=== PATIENT | female | born 1955 | race African-American/Black ===

== ENCOUNTER 2018-03-17 10:49 | Inpatient (IN) | payer MEDICARE, MEDICAID ==
--- NOTE | 2018-03-17 11:14 | CT ---
CT BRAIN WITHOUT CONTRAST: HISTORY: Stroke. Right-sided weakness. Nonverbal. COMPARISON: CT brain 2012. FINDINGS: There is an old right SLIP SEAT COVERER infarction with encephalomalacia. Extensive periventricular and deep white matter microangiopathic changes. Old lacunar infarcts. Moderate atrophy. Mild ex vacuo dilatation of the ventricular system. There is fluid filling the left mastoid sinuses. No hemorrhage. No midline shift or mass effect. IMPRESSION: Chronic changes. No acute hemorrhage. No definite acute intracranial infarction is appreciated. Dr. Hernandez at 11:00 a.m. CODE CR POS: [facility]
[2018-03-17 11:19] LABS: Hemoglobin 12.1 g/dL (12.0-16.0); Mean Corpuscular HGB CONC 35.2 g/dL (32.0-36.0); Mean Corpuscular Hemoglobin 28.8 pg (27.0-31.0); Mean Corpuscular Volume 81.9 fl (81.0-99.0); Mean Platelet Volume 10.3 fL (7.4-10.4); Platelet Count 164 thou/uL (130-400); RBC Distribution Width 14.3 % (11.5-14.5); Red Blood Cell (RBC) Count 4.19 mill/uL (4.20-5.40); White Blood Cell (WBC) Count 11.5 thou/uL (4.8-10.8)
[2018-03-17 11:28] LABS: INR-International Normal Ratio 1.1; PTT 35.3 SEC (22.9-36.1); Prothrombin Time 14.4 SEC (12.0-14.7)
[2018-03-17 11:39] LABS: ALT (SGPT) 20 U/L (8-55); AST (SGOT) 19 U/L (5-34); Albumin 3.4 g/dL (3.4-4.8); Alkaline Phosphatase 88 U/L (40-150); Anion Gap 15 mmol/L (10-20); BUN (Urea Nitrogen) 58 mg/dL (9.8-20.1); Bilirubin, Total 0.4 mg/dL (0.2-1.2); CK (CPK) 54 U/L (29-168); Calc. Creatinine Clearance 0 mL/min (70-130); Calcium 11.4 mg/dL (7.8-10.44); Carbon Dioxide 25 mmol/L (23-31); Chloride 103 mmol/L (98-107); Estimated GFR-MDRD 24; Globulin 4.1 g/dL (2.4-3.5); Glucose 129 mg/dL (80-115); Lipase 102 U/L (8-78); Potassium 3.3 mmol/L (3.5-5.1); Protein, Total 7.5 g/dL (6.0-8.3); Sodium 140 mmol/L (136-145)
--- NOTE | 2018-03-17 11:39 | RAD ---
CHEST ONE VIEW: History: Altered mental status. Comparison: 01-15-13 FINDINGS: The lungs are hypoinflated. No pneumothorax. There is vascular crowding. Dense calcifications in the transverse aorta. There appear to be calcified mediastinal lymph nodes. IMPRESSION: Cardiomegaly with lung hypoinflation and vascular crowding. POS: [facility]
[2018-03-17 11:47] LABS: CKMB 1.6 ng/mL (0-6.6); Troponin I 0.052 ng/mL (< 0.028)
[2018-03-17 11:51] LABS: Band 3 % (5-11); Lymphocytes 1 % (21-51); MDiff Complete? YES; Monocytes 1 % (0-10); Neutrophil 95 % (42-75); PLT Morphology Comment Appears Adequate
--- NOTE | 2018-03-17 15:04 | PDOC.FPRHP ---
- History of Present Illness Chief Complaint: R arm weakness History of Present Illness: 62 y/o Female NH resident PMHx CVA in 2010 w/ residual L sided deficits and dysarthria, HTN, DMII who presents from the NH due to decreased use of her R arm and decreased speech. The patient is AOx1 at baseline. She doesn't speak very much and is dysarthric, but the NH was concerned that when they went to check on her she was less responsive and her eyes rolled back and she was not lifting her R arm as much as she used to. She is not complaining of any pain, but she will only answer some questions and follow some commands. ED Course: The patient was evaluated in the ED by Dr. Bui and was given Aspirin 324mg - Allergies/Adverse Reactions Allergies Allergy/AdvReac Type Severity Reaction Status Date / Time ibuprofen Allergy Verified 03/17/18 16:27 Penicillins Allergy Verified 03/17/18 16:27 - Home Medications Medication Instructions Recorded Confirmed Type Acetaminophen [Tylenol] 6.25 ml PER TUBE Q6HR PRN MDD 3 03/17/18 03/17/18 History grams Amino Acids/Protein Hydrolys 30 ml PER TUBE DAILY 03/17/18 03/17/18 History [Pro-Stat Awc Liquid] Artificial Tear Ointment 1 applic EA EYE ASDIR PRN 03/17/18 03/17/18 History [Lacri-Lube Ointment] Aspirin [Aspirin Chewable] 81 mg PER TUBE DAILY 03/17/18 03/17/18 History Atorvastatin Calcium 80 mg PER TUBE DAILY 03/17/18 03/17/18 History Cholecalciferol (Vitamin D3) 5,000 unit PER TUBE DAILY 03/17/18 03/17/18 History [Vitamin D3] Glimepiride 2 mg PER TUBE BID 03/17/18 03/17/18 History Insulin Glargine,Hum.Rec.Anlog 15 unit SC BID 03/17/18 03/17/18 History [Lantus] Lisinopril [Zestril] 5 mg PER TUBE DAILY 03/17/18 03/17/18 History Loratadine 10 mg PER TUBE DAILY 03/17/18 03/17/18 History Metoprolol Tartrate 12.5 mg PER TUBE BID 03/17/18 03/17/18 History Multivitamin [Multiple Vitamins] 1 each PER TUBE DAILY 03/17/18 03/17/18 History Ondansetron [Zofran Oral Solution] 4 mg PER TUBE Q8HR PRN 03/17/18 03/17/18 History Polyethylene Glycol 3350 [Miralax] 17 gm PER TUBE DAILY 03/17/18 03/17/18 History Sertraline HCl [Zoloft] 50 mg PER TUBE DAILY 03/17/18 03/17/18 History Zantac [Zantac] 75 mg PER TUBE DAILY 03/17/18 03/17/18 History hydrALAZINE [Apresoline] 25 mg PER TUBE QID PRN 03/17/18 03/17/18 History traMADol HCl [Tramadol HCl] 50 mg PER TUBE TID PRN 03/17/18 03/17/18 History - History PMHx: 1. Osteoporosis 2. HTN 3. HLD 4. CAD 5. DM2 6. Migraines 7. Vit D Deficiency 8. Depression 9. 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 Denies EtOH or drug use. - Review of Systems ROS unobtainable: other (Patient is dysarthric) - Vital signs BP: 184/108 HR: 99 RR: 20 Tmax: 99.6 Pox: 100% on RA Wt: 80.3 kg - Physical Exam Constitutional: NAD HEENT: PERRLA, EOMI, conjunctiva clear, grossly normal hearing, normal nasal mucosa, MMM Neck: supple, trachea midline, no JVD Heart: RRR, no murmurs/rubs/gallops, pulses present, no edema Lungs: CTAB, no respiratory distress, good air movement, no rales/rhonchi, no wheezing, no retractions Abdomen: soft, non-tender, bowel sounds present, no masses/distention -Musculoskeletal: L arm held in flexed position, BLE extended, decreased tone in LUE and BLE -Neurological: 0/5 movement on LUE and LLE, 1/5 movement on RLE, 4/5 movement on RUE. Patient only followed some commands so difficult to assess CN and sensation, AOx1 Skin: good turgor, capillary refill <2 seconds FMR H&P: Results - Labs Result Diagrams: 03/17/18 11:10 03/17/18 11:10 Lab results: WBC 11.5 thou/uL (4.8-10.8) H 03/17/18 11:10 Hgb 12.1 g/dL (12.0-16.0) 03/17/18 11:10 Hct 34.3 % (36.0-47.0) L 03/17/18 11:10 MCV 81.9 fl (81.0-99.0) 03/17/18 11:10 Plt Count 164 thou/uL (130-400) 03/17/18 11:10 Band Neuts % (Manual) 3 % (5-11) L 03/17/18 11:10 Sodium 140 mmol/L (136-145) 03/17/18 11:10 Potassium 3.3 mmol/L (3.5-5.1) L 03/17/18 11:10 Chloride 103 mmol/L (98-107) 03/17/18 11:10 Carbon Dioxide 25 mmol/L (23-31) 03/17/18 11:10 BUN 58 mg/dL (9.8-20.1) H 03/17/18 11:10 Creatinine 2.48 mg/dL (0.6-1.1) H 03/17/18 11:10 Glucose 129 mg/dL (80-115) H 03/17/18 11:10 Calcium 11.4 mg/dL (7.8-10.44) H 03/17/18 11:10 Total Bilirubin 0.4 mg/dL (0.2-1.2) 03/17/18 11:10 AST 19 U/L (5-34) 03/17/18 11:10 ALT 20 U/L (8-55) 03/17/18 11:10 Alkaline Phosphatase 88 U/L (40-150) 03/17/18 11:10 Creatine Kinase 54 U/L (29-168) 03/17/18 11:10 CK-MB (CK-2) 1.6 ng/mL (0-6.6) 03/17/18 11:10 Serum Total Protein 7.5 g/dL (6.0-8.3) 03/17/18 11:10 Albumin 3.4 g/dL (3.4-4.8) 03/17/18 11:10 Lipase 102 U/L (8-78) H 03/17/18 11:10 - EKG Interpretation EKst degree AV block, LVH. - Radiology Interpretation CT scan - head Status: image reviewed by me, report reviewed by me Additional comment: No acute hemorrhage or intracranial infarction. Chronic changes seen. Chest x-ray Status: image reviewed by me, report reviewed by me Additional comment: Cardiomegaly. Lung hypoinflation and vascular crowding. FMR H&P: A/P - Problem List (1) TIA (transient ischemic attack) Current Visit: Yes Status: Acute Qualifiers: Transient cerebral ischemia type: unspecified Qualified Code(s): G45.9 - Transient cerebral ischemic attack, unspecified (2) PB (acute kidney injury) Current Visit: Yes Status: Acute Code(s): N17.9 - ACUTE KIDNEY FAILURE, UNSPECIFIED (3) Elevated troponin Current Visit: Yes Status: Acute Code(s): R74.8 - ABNORMAL LEVELS OF OTHER SERUM ENZYMES (4) H/O: CVA (cerebrovascular accident) Current Visit: Yes Status: Acute Code(s): Z86.73 - PRSNL HX OF TIA (TIA), AND CEREB INFRC W/O RESID DEFICITS (5) Hemiplegia Current Visit: Yes Status: Acute Code(s): G81.90 - HEMIPLEGIA, UNSPECIFIED AFFECTING UNSPECIFIED SIDE Qualifiers: Hemiplegia type: spastic Hemiplegia etiology: late effect of cerebrovascular disease Cerebrovascular disease type: cerebral infarction Hemiplegia laterality: left nondominant side Qualified Code(s): I69.354 - Hemiplegia and hemiparesis following cerebral infarction affecting left non- dominant side (6) Hypercalcemia Current Visit: Yes Status: Acute Code(s): E83.52 - HYPERCALCEMIA (7) Hypermagnesemia Current Visit: Yes Status: Acute Code(s): E83.41 - HYPERMAGNESEMIA (8) Hypokalemia Current Visit: Yes Status: Acute Code(s): E87.6 - HYPOKALEMIA (9) Elevated lipase Current Visit: Yes Status: Acute Code(s): R74.8 - ABNORMAL LEVELS OF OTHER SERUM ENZYMES (10) Dysarthria Current Visit: Yes Status: Acute Code(s): R47.1 - DYSARTHRIA AND ANARTHRIA (11) HTN (hypertension) Current Visit: Yes Status: Acute Code(s): I10 - ESSENTIAL (PRIMARY) HYPERTENSION Qualifiers: Hypertension type: essential hypertension Qualified Code(s): I10 - Essential (primary) hypertension (12) HLD (hyperlipidemia) Current Visit: Yes Status: Acute Code(s): E78.5 - HYPERLIPIDEMIA, UNSPECIFIED Qualifiers: Hyperlipidemia type: unspecified Qualified Code(s): E78.5 - Hyperlipidemia , unspecified (13) CAD (coronary artery disease) Current Visit: Yes Status: Acute Code(s): I25.10 - ATHSCL HEART DISEASE OF [place] CORONARY ARTERY W/O ANG PCTRS Qualifiers: Coronary Disease-Associated Artery/Lesion type: [place] artery [place] vs. transplanted heart: [place] heart Associated angina: angina presence unspecified Qualified Code(s): I25.10 - Atherosclerotic heart disease of [place] coronary artery without angina pectoris (14) DM2 (diabetes mellitus, type 2) Current Visit: Yes Status: Acute Qualifiers: Diabetes mellitus shelter insulin use: with shelter use Diabetes mellitus complication status: without complication Qualified Code(s): E11.9 - Type 2 diabetes mellitus without complications; Z79.4 - terminal block assembler (current) use of insulin; Z79.4 - custodial (current) use of insulin; Z79.4 - terminal block assembler ( current) use of insulin; Z79.4 - custodial (current) use of insulin - Plan TIA vs CVA vs Delirium Patient had decreased responsiveness and decreased movement of R arm per [place] report this AM. Upon our evaluation the patient appears to be at her baseline. I spoke to [facility] who stated that she doesn't use that arm very much and is pretty weak in that arm. The MPOA stated that she wanted everything done to evaluate her though including an MRI, even if nothing would be done based on the results. CT showed no hemorrhage or acute infarct. -MRI -Continue aspirin -Continue statin -Neuro checks PB vs CKD Patient has h/o ATN requiring dialysis in 2012. Since then she has been off of dialysis. Her most recent Cr at the [place] was 2.0 with a GFR of 31. The Cr here is 2.48 with GFR of 24. The nurses tried to straight cath her and couldn't get any urine out in the ED. -Check urine Cr and urine Na to measure FeNa -NS @ 150 -Renally dose medications and avoid nephrotoxic meds -Monitor creatinine Indeterminate Troponin Trop was 0.052. The patient shook her head no when asked if any chest pain. -Trend trops -Repeat EKG for any chest pain -Monitor on tele 1st degree AV block Seen on EKG -Monitor on tele CVA with residual L sided hemiplegia and dysarthria Patient appears at her baseline -Stroke workup as above CAD -Continue home aspirin -Trend trop DMII -Levemir 15 U BID (pt on lantus 15 U BID at home) -Mild SSI -Accuchecks ACHS HTN -Continue metoprolol and lisinopril HLD -Continue statin VTE ppx: Heparin Code Status: DNR Disposition/LOS: Obs on tele, length of stay likely less than 48 hours FMR H&P: Upper Level - Pertinent history Patient with chronic severe dementia and weakness and contractures of bilateral legs and L hand presents with not speaking and not using R hand this monring. She spontaneously improved when arriving to the ED but she is still minimally oriented and only intermittetedly verbal. - Pertinent findings Gen: obese female in no acute distress, Does not turn or react when I walk into room. Reacts to very loud talking. HEENT: NC/AT, GIO,EOMI, MMM Resp: CTA, normal work of breathing CV: RRR, normal S1, S2, no murmur ABD: Soft nontender, nondistended. Extremities: significant leg wasting and contractures. Left arm contractures. Psych: Patient is following commands, but is otherwise blank Neuro: R arm 4-/5. Intermittetnly non verbal. - Plan Date/Time: 03/17/18 1503 Kenneth Galicia, have evaluated this patient and agree with findings/plan as outlined by recruitment internship resident. Pertinent changes/additions are listed here. 1. TIA vs delirium- Patient's baseline is not signficantly orientd and has some weakness in R arm at baseline. Patient is high risk for TIA but she may have had acute delirium and was not following commands with using that arm. Per family wishes, will evaluate with MRI and neuro checks. 2. PB on CKD- will monitor CR with gentle fluids. -Monitor creatinine 3. indeterminate troponins- likely 2/2 to renal disease but will trend 4. DM- Will give levemir 15 units BID with SSI 5. HTN- Patient will be 24 hours out from event before next dose of home medications, so we will allow full permissive HTN and then restart. Will monitor closely during this time. She missed her morning medications this AM. 6. HLD- continue statin Attending Addendum - Attending Addendum Date/Time: 03/17/182117 I personally evaluated the patient and discussed the management with Dr. Flores and Dr. Galicia I agree with the History, Examination, Assessment and Plan documented above with any addition or exceptions noted below. 62 yo female with multiple medical conditions present for evaluation of right sided weakness. At present patient appears to be at baseline. No NH staff present. No family present. Spoke with NH staff. Reports decrease use of right arm today will less speech than usual. Otherwise at baseline. VS reviewed. Labs reviewed. Images reviewed. Patient responds to questioning and commands. Oriented to person and place. 1. TIA vs baseline: CT negative. Continue ASA and statin. Family would like to proceed with MRI. Continue neuro checks. Family to evaluate in AM. 2. hx of CVA: Stable focal deficits. Adjust home meds as needed. Vimal
[2018-03-17] MEDS ORDERED: HumaLOG 300 UNITS/3 ML VIAL SC PRN (16:29)
[2018-03-17] MEDS ORDERED: Dextrose 5% in Water 1,000 ML IV PRN (16:29)
[2018-03-17] MEDS ORDERED: Dextrose 50% Abboject 50 ML SYRINGE SLOW IVP PRN (16:29)
[2018-03-17] MEDS ORDERED: hydrALAZINE 20 MG/ML VIAL SLOW IVP PRN ×2 (16:32→17:13)
[2018-03-17] MEDS: Sodium Chloride 0.9% 1,000 ML IV SCH ×2 (17:40→23:40)
[2018-03-17] MEDS: Atorvastatin Calcium 40 MG TAB PER TUBE SCH ×2 (20:06→23:39)
[2018-03-17] MEDS: Insulin Detemir 100 UNITS/ML 15 UNITS SC SCH (20:09)
[2018-03-17] MEDS: Heparin 5,000 UNITS/ML VIAL SC SCH (20:10)
[2018-03-17] MEDS ORDERED: Metoprolol Tartrate 25 MG TAB PER TUBE SCH (21:00)
[2018-03-18] MEDS: Sodium Chloride 0.9% 1,000 ML IV SCH ×4 (05:29→21:56)
[2018-03-18 05:55] LABS: Anion Gap 15 mmol/L (10-20); BUN (Urea Nitrogen) 53 mg/dL (9.8-20.1); Calc. Creatinine Clearance 33 mL/min (70-130); Carbon Dioxide 22 mmol/L (23-31); Cardiac Risk 3.8 (Less than 4.5); Chloride 108 mmol/L (98-107); Cholesterol 172 mg/dl (< 200 Desired); Estimated GFR-MDRD 28; Glucose 139 mg/dL (80-115); HDL Cholesterol 45 mg/dL (>60 Neg Risk); LDL Cholesterol, Calculated 107 mg/dL; Sodium 142 mmol/L (136-145); Triglycerides 98 mg/dL (Less than 150)
[2018-03-18 06:05] LABS: Band 17 % (5-11); Eosinophils 1 % (0-10); Lymphocytes 5 % (21-51); MDiff Complete? YES; Mean Corpuscular HGB CONC 34.5 g/dL (32.0-36.0); Mean Corpuscular Hemoglobin 28.3 pg (27.0-31.0); Mean Platelet Volume 10.1 fL (7.4-10.4); Monocytes 3 % (0-10); Neutrophil 74 % (42-75); PLT Morphology Comment Appears Adequate; Platelet Count 166 thou/uL (130-400); RBC Distribution Width 14.4 % (11.5-14.5); Red Blood Cell (RBC) Count 3.88 mill/uL (4.20-5.40); White Blood Cell (WBC) Count 12.3 thou/uL (4.8-10.8)
[2018-03-18] MEDS ORDERED: hydrALAZINE 20 MG/ML VIAL SLOW IVP PRN (06:43)
[2018-03-18 07:14] LABS: Magnesium 2.6 mg/dL (1.6-2.6); Phosphorus 2.4 mg/dL (2.3-4.7)
--- NOTE | 2018-03-18 08:19 | PDOC.FM ---
- Subjective Subjective: Patient reports some abdominal pain this AM. She pointed to the middle of her abdomen as the place where it hurt the worst. She otherwise doesn't complain of anything specifically. When asked if she had any nausea or vomiting she didn't answer me. She was AOx1. - Objective MAR Reviewed: Yes Vital Signs & Weight: Vital Signs (12 hours) Temp Pulse Resp BP Pulse Ox 03/18/18 07:32 98.7 F 101 H 18 142/96 H 96 03/18/18 04:20 98.4 F 94 20 177/99 H 95 03/17/18 23:48 98.4 F 104 H 20 147/89 H 97 03/17/18 20:20 98.0 F 106 H 20 142/93 H 96 Weight Weight 75.16 kg I&O: 03/17/18 03/18/18 03/19/18 06:59 06:59 06:59 Intake Total 1877 Balance 1877 Result Diagrams: 03/18/18 05:15 03/18/18 05:15 <Laura Flores - Last Filed: 03/18/18 08:18> - Objective Vital Signs & Weight: Vital Signs (12 hours) Temp Pulse Resp BP BP Pulse Ox 03/18/18 12:00 99.3 F 87 22 H 163/86 H 95 03/18/18 10:38 101 H 142/96 H 03/18/18 08:05 98.7 F 101 H 18 03/18/18 07:32 98.7 F 101 H 18 142/96 H 96 03/18/18 04:20 98.4 F 94 20 177/99 H 95 Weight Weight 75.16 kg I&O: 03/17/18 03/18/18 03/19/18 06:59 06:59 06:59 Intake Total 1877 390 Balance 1877 390 Result Diagrams: 03/18/18 05:15 03/18/18 05:15 <Tramaine Shepard - Last Filed: 03/18/18 12:55> Phys Exam - Physical Examination Constitutional: NAD HEENT: moist MMs Respiratory: no wheezing, no rales, no rhonchi, clear to auscultation bilateral Cardiovascular: RRR, no significant murmur, no rub Gastrointestinal: soft, no distention, positive bowel sounds mildly tender to palpation diffusely, no rebound or guarding Musculoskeletal: no edema, pulses present decreased tone 0/5 strength in LUE/LLE. 1/5 strength in RLE. 4/5 strength in RUE. Psychiatric: normal affect Deviation from normal: A&Ox1 Skin: normal turgor, cap refill <2 seconds <Laura Flores - Last Filed: 03/18/18 08:18> Dx/Plan (1) TIA (transient ischemic attack) Status: Acute QualifierTitle: Transient cerebral ischemia type: unspecified Qualified Code(s): G45.9 - Transient cerebral ischemic attack, unspecified (2) PB (acute kidney injury) Code(s): N17.9 - ACUTE KIDNEY FAILURE, UNSPECIFIED Status: Acute (3) Elevated troponin Code(s): R74.8 - ABNORMAL LEVELS OF OTHER SERUM ENZYMES Status: Acute (4) H/O: CVA (cerebrovascular accident) Code(s): Z86.73 - PRSNL HX OF TIA (TIA), AND CEREB INFRC W/O RESID DEFICITS Status: Acute (5) Hemiplegia Code(s): G81.90 - HEMIPLEGIA, UNSPECIFIED AFFECTING UNSPECIFIED SIDE Status: Acute QualifierTitle: Hemiplegia type: spastic Hemiplegia etiology: late effect of cerebrovascular disease Cerebrovascular disease type: cerebral infarction Hemiplegia laterality: left nondominant side Qualified Code(s): I69.354 - Hemiplegia and hemiparesis following cerebral infarction affecting left non-dominant side (6) Hypercalcemia Code(s): E83.52 - HYPERCALCEMIA Status: Acute (7) Hypermagnesemia Code(s): E83.41 - HYPERMAGNESEMIA Status: Acute (8) Hypokalemia Code(s): E87.6 - HYPOKALEMIA Status: Acute (9) Elevated lipase Code(s): R74.8 - ABNORMAL LEVELS OF OTHER SERUM ENZYMES Status: Acute (10) Dysarthria Code(s): R47.1 - DYSARTHRIA AND ANARTHRIA Status: Acute (11) HTN (hypertension) Code(s): I10 - ESSENTIAL (PRIMARY) HYPERTENSION Status: Acute QualifierTitle: Hypertension type: essential hypertension Qualified Code( s): I10 - Essential (primary) hypertension (12) HLD (hyperlipidemia) Code(s): E78.5 - HYPERLIPIDEMIA, UNSPECIFIED Status: Acute QualifierTitle: Hyperlipidemia type: unspecified Qualified Code(s): E78.5 - Hyperlipidemia, unspecified (13) CAD (coronary artery disease) Code(s): I25.10 - ATHSCL HEART DISEASE OF [place] CORONARY ARTERY W/O ANG PCTRS Status: Acute QualifierTitle: Coronary Disease-Associated Artery/Lesion type: [place] artery [place] vs. transplanted heart: [place] heart Associated angina: angina presence unspecified Qualified Code(s): I25.10 - Atherosclerotic heart disease of [place] coronary artery without angina pectoris (14) DM2 (diabetes mellitus, type 2) Status: Acute QualifierTitle: Diabetes mellitus skilled nursing insulin use: with glue spreader use Diabetes mellitus complication status: without complication Qualified Code(s): E11.9 - Type 2 diabetes mellitus without complications; Z79.4 - corrosion control technician (current) use of insulin; Z79.4 - care home (current) use of insulin; Z79.4 - care home (current) use of insulin; Z79.4 - care home (current) use of insulin (15) Leukocytosis Code(s): D72.829 - ELEVATED WHITE BLOOD CELL COUNT, UNSPECIFIED Status: Acute QualifierTitle: Leukocytosis type: bandemia Qualified Code(s): D72.825 - Bandemia - Plan Plan: TIA vs CVA vs Delirium Patient had decreased responsiveness and decreased movement of R arm per [place] report this AM. Upon our evaluation the patient appears to be at her baseline. I spoke to MPOA who stated that she doesn't use that arm very much and is pretty weak in that arm. The MPOA stated that she wanted everything done to evaluate her though including an MRI, even if nothing would be done based on the results. CT showed no hemorrhage or acute infarct. This AM her WBC count has elevated with 17% bands. She has been afebrile, but tachycardic from 90s- 110s. She is reporting abdominal pain this AM that could be the source of infection. -MRI -Continue aspirin -Continue statin -Neuro checks -BCx -UCx, UA PB vs CKD Patient has h/o ATN requiring dialysis in 2012. Since then she has been off of dialysis. Her most recent Cr at the [place] was 2.0 with a GFR of 31. The Cr here is 2.48 with GFR of 24. The nurses tried to straight cath her and couldn't get any urine out in the ED. Her Cr has improved today to 2.14 -Check urine Cr and urine Na to measure FeNa -NS @ 150 -Renally dose medications and avoid nephrotoxic meds -Monitor creatinine Hypokalemia K was 3.0 this AM -Will replete -Monitor Indeterminate Troponin Trop was 0.052. The patient shook her head no when asked if any chest pain. This is likely 2/2 decreased clearance by the kidneys -Monitor on tele 1st degree AV block Seen on EKG -Monitor on tele CVA with residual L sided hemiplegia and dysarthria Patient appears at her baseline -Stroke workup as above CAD -Continue home aspirin DMII -Levemir 15 U BID (pt on lantus 15 U BID at home) -Mild SSI -Accuchecks ACHS HTN -Continue metoprolol and lisinopril HLD -Continue statin <Laura Flores - Last Filed: 03/18/18 08:18> Attending Addendum - Attending Addendum Date/Time: 03/18/18 5745 I personally evaluated the patient and discussed the management with Dr. Flores I agree with the History, Examination, Assessment and Plan documented above with any addition or exceptions noted below. Patient follow commands leucocytosis worrisome skin intact no breakdown/ decubitus noted on exam abdomen soft without guarding rebound. Consider Urine as source not able to obtain cath urine specimen due to prior CVA and contractures LE limiting access. Expectant management culture/treat prn. Exam notable poor oral hygiene and lower incisors mobile. care home need to discuss management goal with POA regard medical care, MRI scheduled r/o new CVA. Prior history of primary hyperparathyroidism will discuss further evaluation and treatment options. <Tramaine Shepard - Last Filed: 03/18/18 12:55>
[2018-03-18] MEDS ORDERED: Ondansetron ODT 8 MG TAB SL PRN (08:26)
[2018-03-18] MEDS: Lisinopril 5 MG TAB PER TUBE SCH (10:38)
[2018-03-18] MEDS: Metoprolol Tartrate 25 MG TAB PER TUBE SCH ×2 (10:39→21:55)
[2018-03-18] MEDS: Insulin Detemir 100 UNITS/ML 15 UNITS SC SCH ×2 (10:41→21:54)
[2018-03-18] MEDS: Aspirin 81 mg Enteric Coated Tablet PER TUBE SCH (10:42)
[2018-03-18] MEDS: Heparin 5,000 UNITS/ML VIAL SC SCH ×3 (10:42→21:55)
--- NOTE | 2018-03-18 16:06 | PDOC.EVN ---
Event Note - Event Note Event Note: Spoke to the MPOA, Daly Nuraurelianorodger, this afternoon and she stated that she no longer wanted the MRI since her sister was back acting like herself again and she is already on all the medications to treat a stroke. Informed her that the patient may have an infection that was causing her symptoms. We have collected a urine and are waiting on results. The sister understood this and did not have any further questions. <Laura Flores - Last Filed: 03/18/18 16:03> Attending Addendum - Attending Addendum Date/Time: 03/19/18 4864 I personally evaluated the patient and discussed the management with Dr. Flores I agree with the History, Examination, Assessment and Plan documented above with any addition or exceptions noted below.Patient given Rocephin following obtaining U/A c/w UTI. Patient WBC improved Patient back at baseline. Patient with established Primary hyperparathyroidism not a surgical candidate will defer any termite renewal inspector medical management to PCP. D/C today with quinolone antibiotic today will f/u outpatient Urine C&S. Patient DNR staus Family counseled regard care plan. <Tramaine Shepard - Last Filed: 03/19/18 11:13>
[2018-03-18 16:56] LABS: Creatinine, Urine 62.43 mg/dL (47-110)
[2018-03-18] MEDS: HumaLOG 300 UNITS/3 ML VIAL SC PRN (17:29)
[2018-03-18 19:19] LABS: Bilirubin Negative (Negative); Blood, Urine Large (Negative); Clarity CLOUDY (Clear); Glucose, Urine (Dipstick) 100 mg/dL (Negative); Leukocyte Negative (Negative); Nitrite Negative (Negative); Protein, Urine (Dipstick) 300 mg/dL (Neg-Trace); Specific Gravity, Urine 1.013 (1.002-1.036); Urobilinogen 0.2 mg/dL (0.2-1.0)
[2018-03-18 19:20] LABS: Bacteria/HPF 4+ HPF (None Seen); Hyaline Casts/LPF 0-3 HYALINE CAST LPF (0-3 Hyaline); Squamous Epithelial None Seen HPF (0-3); WBC/HPF None Seen HPF (0-3)
[2018-03-18] MEDS ORDERED: cefTRIAXone\\ROCEPHIN 1 GM in Sodium Chloride 0.9% 100 ML IVPB SCH (20:00)
[2018-03-18] MEDS ORDERED: cefTRIAXone\\ROCEPHIN 1 GM, Syringe 0.4 ML in Sterile Water 9.6 ML SLOW IVP SCH (21:00)
[2018-03-18] MEDS: Atorvastatin Calcium 40 MG TAB PER TUBE SCH (21:54)
[2018-03-19 04:55] VITALS: BMI 32.5
[2018-03-19 06:19] LABS: Anion Gap 11 mmol/L (10-20); BUN (Urea Nitrogen) 48 mg/dL (9.8-20.1); Calc. Creatinine Clearance 38 mL/min (70-130); Calcium 10.5 mg/dL (7.8-10.44); Carbon Dioxide 22 mmol/L (23-31); Chloride 109 mmol/L (98-107); Estimated GFR-MDRD 31; Glucose 271 mg/dL (80-115); Potassium 3.1 mmol/L (3.5-5.1); Sodium 139 mmol/L (136-145)
[2018-03-19] MEDS: Sodium Chloride 0.9% 1,000 ML IV SCH (06:36)
[2018-03-19] MEDS: HumaLOG 300 UNITS/3 ML VIAL SC PRN ×2 (06:56→11:06)
[2018-03-19 07:18] LABS: Band 7 % (5-11); Eosinophils 2 % (0-10); Lymphocytes 9 % (21-51); MDiff Complete? YES; Mean Corpuscular HGB CONC 34.7 g/dL (32.0-36.0); Mean Corpuscular Hemoglobin 28.5 pg (27.0-31.0); Mean Corpuscular Volume 82.1 fl (81.0-99.0); Mean Platelet Volume 10.3 fL (7.4-10.4); Monocytes 5 % (0-10); Neutrophil 77 % (42-75); Platelet Count 155 thou/uL (130-400); RBC Distribution Width 14.6 % (11.5-14.5); RBC Morphology Normal; Red Blood Cell (RBC) Count 3.49 mill/uL (4.20-5.40); White Blood Cell (WBC) Count 9.3 thou/uL (4.8-10.8)
--- NOTE | 2018-03-19 08:04 | PDOC.FM ---
- Subjective Subjective: The patient is more alert this AM. She reports some abdominal pain when I was pushing on her abdomen. She otherwise denies any complaints. The nurse was in the room and reported that she hasn't had any diarrhea or vomiting. - Objective MAR Reviewed: Yes Vital Signs & Weight: Vital Signs (12 hours) Temp Pulse Resp BP BP Pulse Ox 03/19/18 04:44 90 190/93 H 03/19/18 04:00 99.3 F 90 24 H 190/93 H 190/93 H 93 L 03/19/18 00:00 99.4 F 97 22 H 163/89 H 94 L Weight Admit Weight 75.296 kg Weight 80.739 kg I&O: 03/18/18 03/19/18 03/20/18 06:59 06:59 06:59 Intake Total 1877 3584 Output Total 650 Balance 1877 2934 Result Diagrams: 03/19/18 05:40 03/19/18 05:40 <Laura Flores - Last Filed: 03/19/18 08:02> - Objective Result Diagrams: 03/19/18 05:40 03/19/18 05:40 <Tramaine Shepard - Last Filed: 03/19/18 11:19> Phys Exam - Physical Examination Constitutional: NAD HEENT: moist MMs poor dentition with several loose teeth Neck: no nodes Respiratory: no wheezing, no rales, no rhonchi, clear to auscultation bilateral Cardiovascular: RRR, no significant murmur, no rub Gastrointestinal: soft, no distention, positive bowel sounds mildly tender to palpation in suprapubic region Musculoskeletal: no edema, pulses present no movement of L side of body, 4/5 strength on RUE, dysarthria Lymphatic: no nodes Skin: normal turgor, cap refill <2 seconds <Laura Flores - Last Filed: 03/19/18 08:02> Dx/Plan (1) TIA (transient ischemic attack) Status: Acute QualifierTitle: Transient cerebral ischemia type: unspecified Qualified Code(s): G45.9 - Transient cerebral ischemic attack, unspecified (2) PB (acute kidney injury) Code(s): N17.9 - ACUTE KIDNEY FAILURE, UNSPECIFIED Status: Acute (3) Elevated troponin Code(s): R74.8 - ABNORMAL LEVELS OF OTHER SERUM ENZYMES Status: Acute (4) H/O: CVA (cerebrovascular accident) Code(s): Z86.73 - PRSNL HX OF TIA (TIA), AND CEREB INFRC W/O RESID DEFICITS Status: Acute (5) Hemiplegia Code(s): G81.90 - HEMIPLEGIA, UNSPECIFIED AFFECTING UNSPECIFIED SIDE Status: Acute QualifierTitle: Hemiplegia type: spastic Hemiplegia etiology: late effect of cerebrovascular disease Cerebrovascular disease type: cerebral infarction Hemiplegia laterality: left nondominant side Qualified Code(s): I69.354 - Hemiplegia and hemiparesis following cerebral infarction affecting left non-dominant side (6) Hypercalcemia Code(s): E83.52 - HYPERCALCEMIA Status: Acute (7) Hypermagnesemia Code(s): E83.41 - HYPERMAGNESEMIA Status: Acute (8) Hypokalemia Code(s): E87.6 - HYPOKALEMIA Status: Acute (9) Elevated lipase Code(s): R74.8 - ABNORMAL LEVELS OF OTHER SERUM ENZYMES Status: Acute (10) Dysarthria Code(s): R47.1 - DYSARTHRIA AND ANARTHRIA Status: Acute (11) HTN (hypertension) Code(s): I10 - ESSENTIAL (PRIMARY) HYPERTENSION Status: Acute QualifierTitle: Hypertension type: essential hypertension Qualified Code( s): I10 - Essential (primary) hypertension (12) HLD (hyperlipidemia) Code(s): E78.5 - HYPERLIPIDEMIA, UNSPECIFIED Status: Acute QualifierTitle: Hyperlipidemia type: unspecified Qualified Code(s): E78.5 - Hyperlipidemia, unspecified (13) CAD (coronary artery disease) Code(s): I25.10 - ATHSCL HEART DISEASE OF [place] CORONARY ARTERY W/O ANG PCTRS Status: Acute QualifierTitle: Coronary Disease-Associated Artery/Lesion type: [place] artery [place] vs. transplanted heart: [place] heart Associated angina: angina presence unspecified Qualified Code(s): I25.10 - Atherosclerotic heart disease of [place] coronary artery without angina pectoris (14) DM2 (diabetes mellitus, type 2) Status: Acute QualifierTitle: Diabetes mellitus retirement insulin use: with retirement use Diabetes mellitus complication status: without complication Qualified Code(s): E11.9 - Type 2 diabetes mellitus without complications; Z79.4 - valve fitter (current) use of insulin; Z79.4 - long-term (current) use of insulin; Z79.4 - valve fitter (current) use of insulin; Z79.4 - valve fitter (current) use of insulin (15) Leukocytosis Code(s): D72.829 - ELEVATED WHITE BLOOD CELL COUNT, UNSPECIFIED Status: Resolved QualifierTitle: Leukocytosis type: bandemia Qualified Code(s): D72.825 - Bandemia - Plan Plan: TIA vs CVA vs Delirium Patient had decreased responsiveness and decreased movement of R arm per [facility] report this AM. Upon our evaluation the patient appears to be at her baseline. I spoke to [facility] who stated that she doesn't use that arm very much and is pretty weak in that arm. The MPOA stated that she wanted everything done to evaluate her though including an MRI, even if nothing would be done based on the results. CT showed no hemorrhage or acute infarct. Yesterday WBC count has elevated with 17% bands. She has been afebrile, but tachycardic from 90s-110s. She is reporting abdominal pain this AM that could be the source of infection. UA showed 4+ bacteria, but no LE or nitrites. Started her on Rocephin yesterday due to concern for infection and her WBC count has trended down. BCx 1/2 has grown gram + cocci in clusters. -MPOA elected against the MRI as this would not tar heat exchanger cleaner -Continue aspirin -Continue statin -Neuro checks -BCx -UCx PB vs CKD Patient has h/o ATN requiring dialysis in 2012. Since then she has been off of dialysis. Her most recent Cr at the [facility] was 2.0 with a GFR of 31. The Cr here initially was 2.48 with GFR of 24. The nurses tried to straight cath her and couldn't get any urine out in the ED. Her Cr has improved to 1.97 with fluids. -Will stop fluids at this time -Renally dose medications and avoid nephrotoxic meds -Monitor creatinine Hypokalemia K was 3.1 this AM -Will replete -Monitor Indeterminate Troponin Trop was 0.052. The patient shook her head no when asked if any chest pain. This is likely 2/2 decreased clearance by the kidneys -Monitor on tele 1st degree AV block Seen on EKG -Monitor on tele CVA with residual L sided hemiplegia and dysarthria Patient appears at her baseline -Stroke workup as above CAD -Continue home aspirin DMII -Levemir 15 U BID (pt on lantus 15 U BID at home) -Mild SSI -Accuchecks ACHS HTN -Continue metoprolol and lisinopril -Will stop fluids at this time as pt's BP's have been elevated HLD -Continue statin <Laura Flores - Last Filed: 03/19/18 08:02> Attending Addendum - Attending Addendum Date/Time: 03/19/18 1119 I personally evaluated the patient and discussed the management with Dr. Flores I agree with the History, Examination, Assessment and Plan documented above with any addition or exceptions noted below. <Tramaine Shepard - Last Filed: 03/19/18 11:19>
[2018-03-19] MEDS: Insulin Detemir 100 UNITS/ML 15 UNITS SC SCH (08:50)
[2018-03-19] MEDS: Aspirin 81 mg Enteric Coated Tablet PER TUBE SCH (08:51)
[2018-03-19] MEDS: Lisinopril 5 MG TAB PER TUBE SCH (08:51)
[2018-03-19] MEDS: Metoprolol Tartrate 25 MG TAB PER TUBE SCH (08:51)
[2018-03-19] MEDS: Heparin 5,000 UNITS/ML VIAL SC SCH ×2 (08:51→14:55)
[2018-03-19 16:21] VITALS: BP 175/72; TEMP 99.2
--- NOTE | 2018-03-20 14:51 | DIS-2 ---
DATE OF ADMISSION: 03/19/2018 DATE OF DISCHARGE: 03/19/2018 ADMITTING RESIDENT: Laura Flores M.D. DISCHARGE RESIDENT: Laura Flores M.D. ADMITTING ATTENDING: Kaylin Hyman M.D. DISCHARGE ATTENDING: Tramaine Shepard M.D. CONSULTATIONS: None. PROCEDURES: None. IMAGIN. Brain CT showed chronic changes, no acute hemorrhage, no definite acute intracranial infarction a ppreciated. 2. Chest x-ray showed cardiomegaly with lung hyperinflation and vascular crowding. PRIMARY DIAGNOSES: 1. Transient ischemic attack. 2. Acute urinary tract infection. 3. Acute kidney injury on chronic kidney disease. 4. Leukocytosis. 5. Bandemia. SECONDARY DIAGNOSES: 1. History of cerebrovascular accident x3 with residual dysarthria, left-sided weakness and right lo wer extremity weakness. 2. Primary hyperparathyroidism. DISCHARGE MEDICATIONS: 1. Aspirin 81 mg per tube daily. 2. Atorvastatin 80 mg per tube daily. 3. Vitamin D3 of 5000 units per tube daily. 4. Cinacalcet 30 mg per tube b.i.d. 5. Ciprofloxacin 500 mg per tube q.12 hours for 6 days. 6. Glimepiride 2 mg per tube b.i.d. 7. Hydralazine 25 mg per tube q.i.d. p.r.n. hypertension for systolic blood pressure greater than 16 0. 8. Lantus 15 units subcu b.i.d. 9. Lisinopril 5 mg per tube daily. 10. Loratadine 10 mg per tube daily. 11. Metoprolol tartrate 12.5 mg per tube b.i.d. 12. Multivitamin 1 tab per tube daily. 13. MiraLax 17 grams per tube daily. 14. Sertraline 50 mg per tube daily. 15. Tramadol 50 mg per tube t.i.d. p.r.n. pain. 16. Zantac 75 mg per tube daily. DISCONTINUED MEDICATIONS: None. HISTORY OF PRESENT ILLNESS AND HOSPITAL COURSE: This is a 62-year-old female with past medical histo ry of CVA x3 with residual left-sided hemiplegia and right lower extremity weakness as well as dysart hria who is bedbound and resides in a senior living, who presented due to decreased responsiveness and decreased movement of her right upper extremity. There was initial concern for a CVA. The initial CT scan was negative. The patient was already on all the appropriate medications including a statin and aspirin. A conversation was had with the patient's medical power of deputy county attorney as far as whether o r not to proceed with an MRI and the medical power of deputy county attorney said that she did not wish to proceed at this time, as it would not international exchange coordinator. The patient was, however, found to have tachycardia , tachypnea that were intermittent as well as developed leukocytosis with bandemia. The patient was treated initially with Rocephin and her leukocytosis improved. She had a presumed UTI; however, it w as difficult to collect the urine in this patient, despite a few attempts at catheterization, althou gh the patient had a likely contaminated specimen, based on the patient's symptoms on presentation im provement with Rocephin. The patient was treated presumptively for UTI. This was discussed with her medical power of deputy county attorney who is agreeable to this. The patient was placed on Cipro. The patient w as more in her baseline towards the end of her hospitalization. She is moving her right upper extrem ity as usual and speaking her baseline amount which is minimal amount of speech. The patient was dis charged back to senior living. DISPOSITION: Stable. DISCHARGE INSTRUCTIONS: 1. Location: group home. 2. Diet: Tube feeding. 3. Activity: Bed bound. 4. Followup: With PCP within 7 days.
== END 2018-03-19 18:12 | DRG 69 ==
LOC: ERS 10:49 → 2SE 14:40 → OBSVTOIN 03-19 11:09
PROVIDERS: ADMIT Family Medicine; ATTEND Family Medicine
DX: G45.9 Transient cerebral ischemic attack, unspecified (principal); N17.9 Acute kidney failure, unspecified; I69.354 Hemiplegia and hemiparesis following cerebral infarction affecting left non-dominant side; D72.825 Bandemia; E11.9 Type 2 diabetes mellitus without complications; E21.0 Primary hyperparathyroidism; N39.0 Urinary tract infection, site not specified; E66.9 Obesity, unspecified; I69.322 Dysarthria following cerebral infarction; I69.341 Monoplegia of lower limb following cerebral infarction affecting right dominant side; Z74.01 Bed confinement status; R74.8 Abnormal levels of other serum enzymes; E87.6 Hypokalemia; E78.5 Hyperlipidemia, unspecified; I25.10 Atherosclerotic heart disease of native coronary artery without angina pectoris; I44.0 Atrioventricular block, first degree; Z66 Do not resuscitate; M81.0 Age-related osteoporosis without current pathological fracture; Z87.891 Personal history of nicotine dependence; Z79.4 Long term (current) use of insulin; I10 Essential (primary) hypertension; Z68.32 Body mass index [BMI] 32.0-32.9, adult
CPT/HCPCS: 36415; 36416; 51701; 70450; 71045; 80048; 80053; 80061; 81001; 82553; 82570; 83690; 83735; 83880; 83970; 84100; 84300; 84484; 85025; 85610; 85730; 87040; 87086; 87149; 93005; 94760; A4216; A4353; G8978-GP-CN; G8979-GP-CL; G8987-GO-CN; G8988-GO-CN; G8989-GO-CN; J0360; J0696; J1644; J1815

== ENCOUNTER 2018-04-29 15:59 | Inpatient (IN) | payer MEDICARE, MEDICAID ==
[2018-04-29] MEDS ORDERED: Cefepime 2 GM VIAL ONE (17:26)
[2018-04-29] MEDS ORDERED: Vancomycin HCl 1.25 GM in Sodium Chloride 0.9% 250 ML 250 ML IVPB SCH (17:45)
[2018-04-29 19:04] LABS: Hemoglobin 11.1 g/dL (12.0-16.0); Mean Corpuscular HGB CONC 34.3 g/dL (32.0-36.0); Mean Corpuscular Hemoglobin 28.4 pg (27.0-31.0); Mean Corpuscular Volume 82.7 fl (81.0-99.0); Mean Platelet Volume 10.5 fL (7.4-10.4); Platelet Count 134 thou/uL (130-400); RBC Distribution Width 14.6 % (11.5-14.5); Red Blood Cell (RBC) Count 3.91 mill/uL (4.20-5.40)
--- NOTE | 2018-04-29 19:16 | RAD ---
ONE VIEW CHEST: 04/29/18 COMPARISON: 03/17/18. HISTORY: Altered mental status. Sepsis. FINDINGS: Atherosclerosis of the aorta. Enlarged cardiac silhouette. Pulmonary vessels are within normal limits . Costophrenic angles are clear. Lung volumes are diminished likely due to poor inspiratory effort. I ncreased opacity in the retrocardiac region due to left lower lobe infiltrate. No pneumothorax on the supine projection. IMPRESSION: Atherosclerosis. Left lower lobe infiltrate. POS: [facility]
[2018-04-29 19:17] LABS: ALT (SGPT) 423 U/L (8-55); AST (SGOT) 522 U/L (5-34); Alkaline Phosphatase 62 U/L (40-150); Anion Gap 26 mmol/L (10-20); BUN (Urea Nitrogen) 75 mg/dL (9.8-20.1); Bilirubin, Total 0.8 mg/dL (0.2-1.2); Calc. Creatinine Clearance 0 mL/min (70-130); Calcium 8.6 mg/dL (7.8-10.44); Carbon Dioxide 14 mmol/L (23-31); Chloride 105 mmol/L (98-107); Estimated GFR-MDRD 12; Globulin 3.1 g/dL (2.4-3.5); Glucose 337 mg/dL (80-115); Potassium 4.1 mmol/L (3.5-5.1); Protein, Total 6.1 g/dL (6.0-8.3); Sodium 141 mmol/L (136-145)
[2018-04-29 19:21] LABS: Anisocytosis SLIGHT = 6-15 cells (100X) (0-5/hpf); Band 20 % (5-11); Lymphocytes 11 % (21-51); MDiff Complete? YES; Metamyelocyte 4 % (0-0); Monocytes 7 % (0-10); Neutrophil 58 % (42-75); PLT Morphology Comment Appears Adequate; Polychromasia SLIGHT = 2-3 cells (100X) (0-2/hpf)
[2018-04-29 19:23] LABS: Bilirubin Negative (Negative); Blood, Urine Negative (Negative); Clarity CLEAR (Clear); Glucose, Urine (Dipstick) Negative (Negative); Leukocyte Negative (Negative); Nitrite Negative (Negative); Protein, Urine (Dipstick) 300 mg/dL (Neg-Trace); Specific Gravity, Urine 1.014 (1.002-1.036); Urobilinogen 0.2 mg/dL (0.2-1.0); pH, Urine 7.5 (5.0-9.0)
[2018-04-29 19:26] LABS: Bacteria/HPF None Seen HPF (None Seen); Hyaline Casts/LPF 0-3 HYALINE CAST LPF (0-3 Hyaline); Pathc Cast-AUWi Flag 0.43 (0-2.49); RBC/HPF 0-3 HPF (0-3); Squamous Epithelial 0-3 HPF (0-3); WBC/HPF 0-3 HPF (0-3)
[2018-04-29] MEDS ORDERED: Aspirin 300 MG Suppository ONE (20:12)
--- NOTE | 2018-04-29 20:21 | CT ---
HEAD CT WITHOUT CONTRAST: 04/29/18 HISTORY: Altered mental status x2 days. COMPARISON: 03/17/18. TECHNIQUE: Noncontrast head CT is performed from skull base to skull vertex. FINDINGS: No parenchymal hemorrhage. No extra-axial hematoma. No midline shift. Basilar cisterns are patent. St able malacic changes involving the right occipital and parietal lobe. Additional white matter hypoden sities in the right cerebrum are noted and may represent gliotic change. Remote insult to the right t halamus and right lentiform nucleus is also noted. There is loss of cortical silva-white matter differ entiation involving the right frontal and temporal lobe. The possibility of an infarct cannot be excl uded. The calvarium is intact. Adequate aeration of the sinuses. Bilateral mastoid air cell opacifica tion. IMPRESSION: Malacic and gliotic change involving the right cerebrum. There is loss of cortical silva-white matter differentiation with mild sulcal effacement involving the right frontal temporal region. The possibil ity of an acute insult in this region is favored given that this findings has developed since the ear lier examination. Correlate for possible stroke. POS: [facility]
--- NOTE | 2018-04-29 20:33 | PDOC.FPRHP ---
- History of Present Illness Chief Complaint: AMS History of Present Illness: Patient sent to the ED from [facility]. Her normal nurse was gone for 2 days and upon returning states that the patient was not her normal self and not at her baseline mental status. Family had not seen her in the last 2 days. They state that at baseline she is able to speak with them and knows their names. She is obtunded at time of examination. She does have a DNR/DNI order in place. ED Course: Sats in the 80s on arrival, improved on facemask BPs in the 80s systolic on arrival 3.5 L bolus Vancomycin, Rocephin CT head shows likely new stroke CXR shows possible LLL infiltrate - Allergies/Adverse Reactions Allergies Allergy/AdvReac Type Severity Reaction Status Date / Time ibuprofen Allergy Verified 04/30/18 01:24 morphine Allergy Verified 04/30/18 00:50 Penicillins Allergy Verified 04/30/18 00:50 - Home Medications Medication Instructions Recorded Confirmed Type Acetaminophen [Acetaminophen Oral 6.25 ml PER TUBE Q6HR PRN MDD 3 03/17/1803/17 History Solution] grams Amino Acids/Protein Hydrolys 30 ml PER TUBE DAILY 03/17/18 03/17/18 History [Pro-Stat AWC Liquid] Artificial Tear Ointment 1 applic EA EYE ASDIR PRN 03/17/18 03/17/18 History [Lacri-Lube Ophth Ointment] Aspirin [Aspirin Chewable Tablet] 81 mg PER TUBE DAILY 03/17/18 03/17/18 History Cholecalciferol (Vitamin D3) 5,000 unit PER TUBE DAILY 03/17/18 03/17/18 History [Vitamin D3] Glimepiride 2 mg PER TUBE BID 03/17/18 04/30/18 History Insulin Glargine,Hum.Rec.Anlog 20 unit SC QAM 03/17/18 04/30/18 History [Lantus] Lisinopril [Zestril] 5 mg PER TUBE DAILY 03/17/18 04/30/18 History Loratadine 10 mg PER TUBE DAILY 03/17/18 04/30/18 History Metoprolol Tartrate 12.5 mg PER TUBE BID 03/17/18 04/30/18 History Multivitamin [Multiple Vitamins] 1 each PER TUBE DAILY 03/17/18 03/17/18 History Ondansetron [Zofran Oral Solution] 4 mg PER TUBE Q8HR PRN 03/17/18 03/17/18 History Polyethylene Glycol 3350 [Miralax] 17 gm PER TUBE DAILY 03/17/18 04/30/18 History Sertraline HCl [Zoloft] 50 mg PER TUBE DAILY 03/17/18 04/30/18 History Zantac 75 mg PER TUBE DAILY 03/17/18 04/30/18 History hydrALAZINE [Apresoline] 25 mg PER TUBE QID PRN 03/17/18 04/30/18 History traMADol HCl [Tramadol HCl] 50 mg PER TUBE TID PRN 03/17/18 04/30/18 History Cinacalcet HCl [Sensipar] 30 mg PO BID #60 tab 03/19/18 04/30/18 Rx Ezetimibe [Zetia] 10 mg PO DAILY 04/30/18 04/30/18 History HumaLOG [HumaLOG] 0 unit SC BID-AC PRN 04/30/18 04/30/18 History Insulin Glargine,Hum.Rec.Anlog 17 units SQ QPM 04/30/18 04/30/18 History [Lantus] - History CVA x3, Primary Hyperparathyroidism, Osteoporosis, HTN, HLD, CAD, DM2, Migraines, Vit D deficiency PSHx: R knee sx, Hysterectomy, , gastrostomy FHx: Mother - CVA Social: [facility], Former smoker - 1/2 ppd for 30 years, quit before 2012. Denies EtOH or drug use. - Review of Systems ROS unobtainable: due to mental status - Vital signs BP: 77/43 HR: 111 RR: 24 Tmax: 98.9 Pox: mid 90s% on 3L Wt: 79.83 - Physical Exam -Constitutional: Obtunded, does not respond to voice, mild groans while placing central line unclear if in response to pain HEENT: PERRLA Neck: supple -Heart: Increased Rate, no murmur noted, cap refill <2, no edema Lungs: CTAB -Lungs: increased respiratory rate Abdomen: soft, non-tender -Skin: sacral decubitus ulcer FMR H&P: Results - Labs Result Diagrams: 04/30/18 05:03 04/30/18 05:03 Lab results: WBC 8.0 thou/uL (4.8-10.8) 04/29/18 18:47 Hgb 11.1 g/dL (12.0-16.0) L 04/29/18 18:47 Hct 32.3 % (36.0-47.0) L 04/29/18 18:47 MCV 82.7 fl (81.0-99.0) 04/29/18 18:47 Plt Count 134 thou/uL (130-400) 04/29/18 18:47 Band Neuts % (Manual) 20 % (5-11) H 04/29/18 18:47 Sodium 141 mmol/L (136-145) 04/29/18 18:47 Potassium 4.1 mmol/L (3.5-5.1) 04/29/18 18:47 Chloride 105 mmol/L (98-107) 04/29/18 18:47 Carbon Dioxide 14 mmol/L (23-31) L 04/29/18 18:47 BUN 75 mg/dL (9.8-20.1) H 04/29/18 18:47 Creatinine 4.45 mg/dL (0.6-1.1) H 04/29/18 18:47 Glucose 337 mg/dL (80-115) H 04/29/18 18:47 Lactic Acid 11.0 mmol/L (0.5-2.2) H* 04/29/18 18:47 Calcium 8.6 mg/dL (7.8-10.44) 04/29/18 18:47 Total Bilirubin 0.8 mg/dL (0.2-1.2) 04/29/18 18:47 AST 522 U/L (5-34) H 04/29/18 18:47 ALT 423 U/L (8-55) H 04/29/18 18:47 Alkaline Phosphatase 62 U/L (40-150) 04/29/18 18:47 Serum Total Protein 6.1 g/dL (6.0-8.3) 04/29/18 18:47 Albumin 3.0 g/dL (3.4-4.8) L 04/29/18 18:47 Urine Ketones Negative mg/dL (Negative) 04/29/18 19:16 Urine Blood Negative (Negative) 04/29/18 19:16 Urine Nitrite Negative (Negative) 04/29/18 19:16 Ur Leukocyte Esterase Negative (Negative) 04/29/18 19:16 Urine RBC 0-3 HPF (0-3) 04/29/18 19:16 Urine WBC 0-3 HPF (0-3) 04/29/18 19:16 Ur Squamous Epith Cells 0-3 HPF (0-3) 04/29/18 19:16 Urine Bacteria None Seen HPF (None Seen) 04/29/18 19:16 FMR H&P: A/P - Problem List (1) PB (acute kidney injury) Current Visit: No Status: Acute Code(s): N17.9 - ACUTE KIDNEY FAILURE, UNSPECIFIED (2) CAD (coronary artery disease) Current Visit: No Status: Acute Code(s): I25.10 - ATHSCL HEART DISEASE OF [place] CORONARY ARTERY W/O ANG PCTRS Qualifiers: Coronary Disease-Associated Artery/Lesion type: [place] artery [place] vs. transplanted heart: redding heart Associated angina: angina presence unspecified Qualified Code(s): I25.10 - Atherosclerotic heart disease of [place] coronary artery without angina pectoris (3) DM2 (diabetes mellitus, type 2) Current Visit: No Status: Acute Qualifiers: Diabetes mellitus senior care insulin use: with termite renewal inspector use Diabetes mellitus complication status: without complication Qualified Code(s): E11.9 - Type 2 diabetes mellitus without complications; Z79.4 - halfway (current) use of insulin; Z79.4 - halfway (current) use of insulin; Z79.4 - halfway ( current) use of insulin; Z79.4 - oysterman (current) use of insulin (4) Hypercalcemia Current Visit: No Status: Acute Code(s): E83.52 - HYPERCALCEMIA (5) TIA (transient ischemic attack) Current Visit: No Status: Acute Qualifiers: Transient cerebral ischemia type: unspecified Qualified Code(s): G45.9 - Transient cerebral ischemic attack, unspecified - Plan # Acute CVA - CT scan notes likely acute ischemic infarct - Family does not want further workup such as MRI at this time - ASA, statin - Will avoid anticoagulants in light of ischemic infarct - unknown time of onset, not a candidate for TPA - NPO, ST eval # Sepsis - hypotensive, increased RR, Increased HR, WBC 8.0 - likely volume depletion - 3.5 ml in the ED - Blood cultures, urine cultures pending - claire Rivera #DM2 - hold insulin for now until able to take PO - SSI # Goals of Care - long-discussion with family - they are firmly DNR/DNI - would like to speak with palliative care team, are interested in hospice # HTN - holding meds 2/2 hypotension in ED Dispo: >48 hours FMR H&P: Upper Level - Pertinent history 62 yo F with PMH significant for h/o CVA in 2010, HTN, DM2 who was found minimally responsive [facility] family and [facility] staff earlier this evening. Patient is usually A&O x1 per family, but was found largely unresponsive today at [facility]. Unsure when symptoms began, but EMS was called and pt transported to ED. Initial GCS of 9-10, but patient has DNR/DNI order, so patient was placed on nonrebreather when sats were noted to be in 80s. BP was noted to be low as well , and a central line was attempted in ER unsuccessfully. Patient had L shoulder IO started and was fluid resuscitated with 2L NS with some mild improvement in alertness. Sent for CT of brain, which revealed new infarct. - Pertinent findings PE: T: P: BP: RR: % Gen: obese, obtunded female HEENT: pupils equal, minimally reactive, dry MM, no lymphadenopathy or thyromegaly CV: RRR no murmurs, distal pulses intact Pulm: CTAB, no wheezes or rhonchi Abd: soft, NT/ND, BS present, no masses or distention Ext: no cyanosis or edema MSK: NEW well, no joint or muscle pain or swelling Neuro: obtunded, GCS = 10 Skin: no rashes or lesions Psych: A&O x0 - Plan Date/Time: 04/29/182031 62 yo F here with AMS. 1) Acute CVA: Admit to stroke. After discussion with family, they do not wish for any interventions to be done at this time and also wish to respect her DNR/ DNI order. Will treat supportively and continue to fluid resuscitate. Will consult palliative care team in AM. 2) Moderate volume depletion: S/p 3L NS now. Continue to push IVFs. Unclear etiology at this time, but possibly due to poor po intake and monitoring at [facility]. Will continue broad spectrum abx for the interim. 3) DM2: Accuchecks qAC/HS, SSI 4) HTN: holding home meds now due to hypotension 5) CAD: holding home meds I, [Orlando Burger], have evaluated this patient and agree with findings/plan as outlined by internet salesperson resident. Pertinent changes/additions are listed here. Attending Addendum - Attending Addendum Date/Time: 04/29/182129 I personally evaluated the patient and discussed the management with Dr. Carreon/ Tao. I agree with the History, Examination, Assessment and Plan documented above with any addition or exceptions noted below. Patient with history of 3 previous CVA who [facility] presenting with 2 days of altered mentation and decreased responsiveness. Family not in room during my exam so history gathered from nursing and EMS records. It appears that patient's normal nurse had not been present over the last few days, but upon return noted that the patient was not at her baseline mentation. She was sent to the ER for further evaluation. On arrival, she was noted to be hypotensive, hypoxic on room air, and tachycardic. Septic shock was initially considered, but due to patient DNR/DNI status, family opted for no invasive measures to be taken. She was given antibiotics, 3.5L IV fluids, and placed on facemask with significant improvement in vital signs noted. She was obtunded and minimally responsive, and so CT brain obtained which showed likely new and evolving ischemic infarct. She was admitted for further care and workup. On exam, she will open eyes to commands, but is unable to respond appropriately. Pupils are equal, dilated, and sluggish. Respiratory effort somewhat increased, with transmitted upper airway sounds. Heart is tachycardic but otherwise normal. Abdomen soft, nontender. Pulses equal. No peripheral edema. Neuro exam not completed due to noncooperative patient. Her labs are significant for leukocytosis and what appears to be an acute insult of her chronic renal disease. She also has a profound lactic acidosis on admission. As patient does not wish to pursue invasive measures if her condition deteriorates , she will be admitted to the stroke unit. Will consult stroke team, but family apparently plans to defer on MRI. She has received ASA and statin therapy. Will treat supportively. Vitals improved from admission and this was likely due to profound hypovolemia that is now resolved. Trend lactate, assume this is also related to hypovolemia and hypotension. Trend renal values. Consult Palliative care in AM for goals of care and consider hospice placement if family does not wish to treat aggressively, though I am unsure what benefit the patient would receive from aggressive mgmt due to her already poor functional status.
[2018-04-29 23:31] LABS: Lactic Acid 9.4 mmol/L (0.5-2.2)
[2018-04-29] MEDS ORDERED: Ondansetron ODT 4 MG TAB SL PRN (23:48)
[2018-04-29] MEDS ORDERED: Ondansetron HCl/PF 4 MG/2 ML Vial IVP PRN (23:48)
[2018-04-29] MEDS ORDERED: Acetaminophen 325 MG TAB PO PRN (23:48)
[2018-04-30] MEDS ORDERED: HumaLOG 300 UNITS/3 ML VIAL SC PRN (00:58)
[2018-04-30] MEDS ORDERED: Dextrose 50% Abboject 50 ML SYRINGE SLOW IVP PRN (00:58)
[2018-04-30] MEDS ORDERED: Dextrose 5% in Water 1,000 ML IV PRN (00:58)
[2018-04-30] MEDS ORDERED: Lacri-Lube Opth Oint 3.5 GM TUBE EA EYE PRN (01:08)
[2018-04-30] MEDS: Sodium Chloride 0.9% 1,000 ML IV SCH ×4 (01:24→10:40)
[2018-04-30] MEDS ORDERED: cefTRIAXone\\ROCEPHIN 1 GM in Sodium Chloride 0.9% 100 ML IVPB SCH ×2 (02:00→02:30)
[2018-04-30] MEDS ORDERED: Sodium Chloride 0.9% 500 ML IVPB SCH (06:00)
[2018-04-30 06:17] LABS: ALT (SGPT) 1052 U/L (8-55); AST (SGOT) 1522 U/L (5-34); Albumin 3.2 g/dL (3.4-4.8); Alkaline Phosphatase 77 U/L (40-150); Anion Gap 22 mmol/L (10-20); BUN (Urea Nitrogen) 75 mg/dL (9.8-20.1); Bilirubin, Total 1.1 mg/dL (0.2-1.2); Calc. Creatinine Clearance 16 mL/min (70-130); Calcium 6.9 mg/dL (7.8-10.44); Carbon Dioxide 14 mmol/L (23-31); Cardiac Risk 5.5 (Less than 4.5); Chloride 110 mmol/L (98-107); Cholesterol 127 mg/dl (< 200 Desired); Estimated GFR-MDRD 11; Globulin 3.6 g/dL (2.4-3.5); Glucose 223 mg/dL (80-115); HDL Cholesterol 23 mg/dL (>60 Neg Risk); LDL Cholesterol, Calculated 77 mg/dL; Potassium 3.5 mmol/L (3.5-5.1); Protein, Total 6.8 g/dL (6.0-8.3); Sodium 142 mmol/L (136-145); Triglycerides 134 mg/dL (Less than 150)
[2018-04-30 06:19] LABS: Hemoglobin 11.7 g/dL (12.0-16.0); Mean Corpuscular Hemoglobin 28.3 pg (27.0-31.0); Mean Corpuscular Volume 83.3 fl (81.0-99.0); Mean Platelet Volume 11.2 fL (7.4-10.4); Platelet Count 125 thou/uL (130-400); RBC Distribution Width 14.6 % (11.5-14.5); Red Blood Cell (RBC) Count 4.12 mill/uL (4.20-5.40); White Blood Cell (WBC) Count 6.8 thou/uL (4.8-10.8)
[2018-04-30 06:20] LABS: Band 35 % (5-11); Lymphocytes 10 % (21-51); MDiff Complete? YES; Monocytes 5 % (0-10); Neutrophil 50 % (42-75); PLT Morphology Comment Appears Adequate
[2018-04-30] MEDS ORDERED: Aspirin 81 mg Enteric Coated Tablet PO SCH (09:00)
[2018-04-30] MEDS ORDERED: Atorvastatin Calcium 40 MG TAB PER TUBE SCH (09:00)
[2018-04-30 10:36] LABS: Lactic Acid 5.7 mmol/L (0.5-2.2)
[2018-04-30 11:22] VITALS: TEMP 98.7
--- NOTE | 2018-04-30 11:27 | PDOC.FM ---
- Subjective Subjective: Patient is resting in bed, moving only her R arm in a non-purposeful way. She is not responsive to verbal stimulus and does not follow commands. She is AOx0 and nurse reports this has been consistent overnight. Initially patient hypotensive, responded well to fluids with SBP in 100's. As the nurse rolled patient to change brief, a large amount of clear, stringy, foul smelling mucous with slight blood tinge is found in her brief. Family is not in the room at this time. - Objective MAR Reviewed: Yes Vital Signs & Weight: Vital Signs (12 hours) Temp Pulse Pulse Resp BP BP Pulse Ox 04/30/18 11:21 98.7 F 130 H 20 75/54 L 95 04/30/18 08:00 99.2 F 121 H 132 H 42 H 103/65 91 L 04/30/18 07:21 99.2 F 124 H 18 115/66 92 L 04/30/18 04:37 99.8 F H 126 H 28 H 132/70 98 Pulse Ox 04/30/18 11:21 04/30/18 08:00 91 L 04/30/18 07:21 04/30/18 04:37 Weight Weight 81.692 kg I&O: 04/29/18 04/30/18 05/01/18 06:59 06:59 06:59 Intake Total 1150 Output Total 75 Balance 1075 Result Diagrams: 04/30/18 05:03 04/30/18 05:03 <Tatum Garza - Last Filed: 04/30/18 14:10> - Objective Vital Signs & Weight: Vital Signs (12 hours) Temp Pulse Resp BP Pulse Ox 04/30/18 11:21 98.7 F 130 H 20 105/55 L 95 Weight Admit Weight 79.832 kg Weight 81.692 kg I&O: 04/29/18 04/30/18 05/01/18 06:59 06:59 06:59 Intake Total 1150 Output Total 75 Balance 1075 Result Diagrams: 04/30/18 05:03 04/30/18 05:03 <Karen Wray - Last Filed: 04/30/18 20:59> Phys Exam - Physical Examination increased respiratory effort, AOx0, GCS 7 Respiratory: no wheezing, no rales, clear to auscultation bilateral increased work of breathing Cardiovascular: no significant murmur tachycardia rigid abdomen, patient withdraws when touching suprapubic area BETTINA: decreased tone, no stool in the vault, mucous discharge Musculoskeletal: no edema, pulses present contracture of L arm, not obeying commands, nonpurposeful movement Deviation from normal: AOx0 <Tatum Garza - Last Filed: 04/30/18 14:10> Dx/Plan (1) CVA (cerebral vascular accident) Code(s): I63.9 - CEREBRAL INFARCTION, UNSPECIFIED Status: Acute (2) Shock liver Code(s): K72.00 - ACUTE AND SUBACUTE HEPATIC FAILURE WITHOUT COMA Status: Acute (3) Multiple organ failure Code(s): TWX8174 - Status: Acute (4) Acute renal failure (ARF) Status: Acute (5) Sepsis Code(s): A41.9 - SEPSIS, UNSPECIFIED ORGANISM Status: Acute (6) CAP (community acquired pneumonia) Code(s): J18.9 - PNEUMONIA, UNSPECIFIED ORGANISM Status: Acute (7) Lactic acidosis Code(s): E87.2 - ACIDOSIS Status: Acute (8) H/O: CVA (cerebrovascular accident) Code(s): Z86.73 - PRSNL HX OF TIA (TIA), AND CEREB INFRC W/O RESID DEFICITS Status: Acute - Plan Plan: Multi-organ Failure - Patient currently has acute renal failure, what appears to be shock liver, and continued hypotension with tachycardia and AMS from acute CVA. - palliative care consulted - plan for family discussion today to determine goals of care as prognosis is poor - meets sepsis criteria, LLL infiltrate, unsure if this is source - procalcitonin for evaluation of bacterial source - CTabd/pelvis with rigid abdomen and apparent abd pain to ensure we have evaluated for other infectious source - stool sample of mucousy discharge pending Acute Renal Failure - per chart review last Cr was 1.8, today 4.7 - urine cr and urine Na to evaluate cause of ARF although likely due to ischemia from hypotension at admission - continue fluids for now and trend Cr. - consider consult to Nephrology for dialysis pending conversation with family. Shock Liver - likely with AST/ALT in the 1000's this morning - repeat tomorrow - continue with fluids to avoid hypotension Acute Ischemic CVA - Family initially reports wishes to withhold further testing such as MRI, again will discuss with family today. - ASA, statin - Will avoid anticoagulants in light of ischemic infarct - unknown time of onset, not a candidate for TPA - NPO, ST eval Sepsis with Lactic Acidosis - hypotensive, increased RR, Increased HR, WBC 8.0 with 20% bands - continue NS at 200 - initial lactate 11--> 9 --> 5, repeat tomorrow morning - Blood cultures, urine cultures pending - Continue Vancomycin, switch Rocephin to Zosyn for better GI coverage DM2 - hold home insulin for now until able to take PO - SSI Goals of Care - long-discussion with family from night team in which they discussed DNR/DNI - will discuss with family again and palliative care consulted HTN - holding meds 2/2 hypotension in ED HLD - hold home medications for now, not likely to tolerate PO with GCS 7 Hx of CAD - hold PO meds for now due to GCS 7 Dispo: >48 hours <Tatum Garza - Last Filed: 04/30/18 14:10> Attending Addendum - Attending Addendum Date/Time: 04/30/182054 I personally evaluated the patient and discussed the management with Dr. Garza. I agree with the History, Examination, Assessment and Plan documented above with any addition or exceptions noted below. The patient's CT showed loss of silva/white matter differentiation suggestive of stroke. She is obtunded this morning. She withdraws due to pain when abdomen is palpated. Labs also consistent with sepsis from possible pneumonia but abdominal exam also indicates their could be infection there as well. Will add zosyn to the vanc and rocephin. Continue IV fluids. Check CT Abd/pelvis. Contact family as she is appropriate for hospice but will proceed with full treatment until they can make a decision on goals of care. <Karen Wray - Last Filed: 04/30/18 20:59>
[2018-04-30 12:00] VITALS: BP 105/55
[2018-04-30 12:05] VITALS: BMI 32.9
[2018-04-30] MEDS ORDERED: Lorazepam 2 MG/ML VIAL SLOW IVP PRN (15:13)
--- NOTE | 2018-04-30 15:20 | PDOC.EVN ---
Event Note - Event Note Event Note: Residents called to bedside by nursing because patient was tachycardic, tachypneic, and had a BP of 69/49. Dr. Cosby at bedside noted patient was tachypneic, obtunded, clammy, and had increased work of breathing. Fluid bolus was started. [place] from Palliative [facility] called the son and Arturo GEIGER. He stated consult for hospice team for possible inpatient hospice and make patient comfort measures only. We will proceed with this plan. Family is on their way. Dr. Wray, family practice attending was notified. We will provide comfort measures and await family arrival.
[2018-04-30] MEDS ORDERED: Fentanyl 100 MCG/2 ML VIAL SLOW IVP PRN (15:39)
--- NOTE | 2018-04-30 15:43 | CT ---
CT ABDOMEN AND PELVIS NONCONTRAST: 04/30/18 HISTORY: Abdominal pain. Rigid abdomen. COMPARISON: 07/10/13. FINDINGS: Each renal collecting system, ureter, and urinary bladder are decompressed without stone evident. Fol ey catheter and gas are also present within the urinary bladder. Lack of contrast limits evaluation f or other abnormalities. Hyperdense stones are present within the dependent portion of the gallbladder lumen. Small bilateral pleural effusions with bibasilar atelectasis. Percutaneous gastrostomy feeding cathet er. Stranding within the central abdominal fat surrounds the pancreas where there is increased fluid. A 0.2 cm calculus is present at the superior margin of the inflamed pancreatic body. Small amount of free fluid extends into each pericolic gutter. No evidence of bowel obstruction. Prominent arterial calcification. IMPRESSION: 1. Significant inflammation surrounding the pancreas suggestive of acute pancreatitis with small amount of free fluid. Small pancreatic calcification is also apparent. Clinical correlation regardin g other signs and symptoms of gallstone pancreatitis versus alcoholic pancreatitis is required. 2. Small bilateral pleural effusions and bibasilar lung atelectasis are likely related to pancre atitis. 3. Cholelithiasis. 4. Atherosclerosis. POS: [facility]
[2018-04-30] MEDS ORDERED: Atorvastatin Calcium 40 MG TAB PO SCH (21:00)
--- NOTE | 2018-05-01 12:42 | DIS-2 ---
DATE OF ADMISSION: 04/29/2018 DATE OF DISCHARGE: 04/30/2018 RESIDENT: Tatum Garza DO ADMITTING ATTENDING: Jaylan Woo MD DISCHARGE ATTENDING: Karen Wray M.D. CONSULTATIONS: None. PROCEDURES/IMAGIN. Chest x-ray shows atherosclerosis and left lower lobe infiltrate. 2. Brain CT shows melanocytic and gliotic changes involving the right cerebrum, loss of cortical gra y-white matter differentiation with mild sulcal effacement involving the right frontotemporal region and possibility of acute insult in this region is favored since findings have developed since earlier exam. 3. The abdomen and pelvis CT shows significant inflammation surrounding the pancreas suggestive of a cute pancreatitis with a small amount of free fluid. Also, a small pancreatic calcification is appar ent. Small bilateral pleural effusions and bibasilar lung atelectasis, likely related to pancreatiti s, cholelithiasis, and atherosclerosis. PRIMARY DIAGNOSES: 1. Acute cerebrovascular accident. 2. Shock liver. 3. Multiple organ failure. 4. Acute renal failure. 5. Sepsis. 6. Community-acquired pneumonia. 7. Lactic acidosis. 8. History of cerebrovascular accident. 9. Type 2 diabetes mellitus. 10. Hypertension. 11. Hyperlipidemia. 12. History of coronary artery disease. DISCHARGE MEDICATIONS: The patient was discharged to hospice care and comfort care measures. Her co mfort care medications were continued. Otherwise, home medications discontinued. DISCONTINUED MEDICATIONS: 1. Humalog. 2. Zoloft 50 mg. 3. Zetia 10 mg. 4. Zantac 75 mg. 5. Sensipar 30 mg. 6. MiraLax 17 grams. 7. Metoprolol tartrate 12.5 mg b.i.d. 8. Loratadine 10 mg. 9. Lisinopril 5 mg. 10. Lantus 17 units q.p.m. 11. Lantus 20 units q.a.m. 12. Hydralazine 25 mg q.i.d. 13. Glimepiride 2 mg b.i.d. HISTORY OF PRESENT ILLNESS/HOSPITAL COURSE: This patient is a 62-year-old female with past medical h istory of CVA, who was sent from the [facility] due to altered mental status from base line, history is sparse due to the family not being able to see her in the last 2 days, but they repo rt a baseline she is able to speak with them and knows their names. At the time of initial examinati on, she obtunded, A and O x0. Upon further questioning, family reports that she did have a slight co ugh couple days ago, but otherwise was acting normally. In the ED, she had saturations in the 80s, w hich improved on facemask. Her blood pressure was in 80s systolic and she received 3.5 liters, which improved her blood pressures to the 110s systolic. She received vancomycin and Rocephin for apparen t sepsis and a chest x-ray showed possible left lower lobe infiltrate. CT of the head showed likely a new stroke. Patient's initial laboratory findings show multiorgan failure, likely secondary to hyp otension including acute renal failure with a GFR of 11, creatinine of 4.76, BUN of 75, apparent shoc k liver with AST of 1522, ALT of 1052. Initial lactic acid of 9.4. Normal white blood cell count, b ut an apparent left shift with band neutrophils of 20 initially and increasing to 35 on repeat. As d iscussed, vital signs initially with blood pressures in the 80s systolic improved to one teens at bes t, but without continued fluids would fall. With IV fluids maintain 100 systolic blood pressure over 50s to 60s diastolic. Patient tachycardic to the 110s to 120s and O2 requiring up to 4 liters nasal cannula to maintain sats above 90. At this time, as discussed with the family, poor prognosis of th e patient. On exam, did withdraw from pain on belly exam. A CT abdomen showed possible pancreatitis , although these results were obtained after discussion with the family. Family decided to proceed w ith comfort care measures only, DNR status, and hospice consult. Hospice came and evaluated the trista ent and deemed appropriate for inpatient hospice at [facility]. Comfort care measures were put in place. The patient received some fentanyl for pain. At the time of discharge to hospice care , the patient had a respiratory rate of 42, O2 sat 91 on 4 liters, had apparent air hunger, cold extr emities, and impending . DISPOSITION: Unstable. DISCHARGE INSTRUCTIONS: 1. Location: Inpatient hospice at [facility]. 2. Diet: N.p.o. The patient GCS 6. 3. Activity: Strict bed rest. 4. Followup: No followup. The patient likely will within 24 hours in the hospital.
[2018-05-01] MEDS ORDERED: Vancomycin HCl 1.25 GM in Sodium Chloride 0.9% 250 ML 250 ML IVPB SCH (18:00)
== END 2018-04-30 17:35 | disposition hospice, inpatient (51) | DRG 871 ==
LOC: ERS 15:59 → 2SE 17:45
PROVIDERS: ADMIT Student in an Organized Health Care Education/Training Program; ATTEND Student in an Organized Health Care Education/Training Program
DX: A41.9 Sepsis, unspecified organism (principal); I63.9 Cerebral infarction, unspecified; K72.00 Acute and subacute hepatic failure without coma; J18.9 Pneumonia, unspecified organism; N17.9 Acute kidney failure, unspecified; E87.2 Acidosis; Z66 Do not resuscitate; Z88.6 Allergy status to analgesic agent; Z88.5 Allergy status to narcotic agent; Z88.0 Allergy status to penicillin; E11.9 Type 2 diabetes mellitus without complications; Z79.4 Long term (current) use of insulin; Z86.73 Personal history of transient ischemic attack (TIA), and cerebral infarction without residual deficits; M81.0 Age-related osteoporosis without current pathological fracture; I10 Essential (primary) hypertension; E78.5 Hyperlipidemia, unspecified; I25.10 Atherosclerotic heart disease of native coronary artery without angina pectoris; F17.210 Nicotine dependence, cigarettes, uncomplicated; E83.52 Hypercalcemia; E86.0 Dehydration; Z51.5 Encounter for palliative care; Z79.82 Long term (current) use of aspirin
CPT/HCPCS: 36415; 36416; 36556; 51702; 70450; 71045; 74176; 80053; 80061; 81003; 81015; 82274; 82570; 83605; 83630; 83880; 84145; 84300; 85025; 87040; 87045; 87046; 87081; 87086; 87449; 87899; 93005; 93010; 96361; 96365; 96366; 99292; A4216; A4353; G8987-GO-CN; G8988-GO-CN; G8989-GO-CN; J0692; J0696; J2060; J3010; J3370; J7050

== ENCOUNTER 2018-04-30 17:36 | Inpatient (IN) | payer OTHER ==
[2018-04-30] MEDS ORDERED: Scopolamine 1.5 mg/72 hour Patch TOP PRN (18:02)
[2018-04-30] MEDS ORDERED: Ondansetron HCl/PF 4 MG/2 ML Vial IVP PRN (18:02)
[2018-04-30] MEDS ORDERED: Lorazepam 2 MG/ML VIAL SLOW IVP PRN (18:03)
[2018-04-30 18:04] VITALS: BMI 304674.0
[2018-04-30] MEDS ORDERED: Fentanyl 100 MCG/2 ML VIAL SLOW IVP PRN (18:04)
[2018-04-30 18:33] VITALS: TEMP 98.5
[2018-04-30 21:11] VITALS: BP 60/38
== END 2018-04-30 23:57 | disposition expired | DRG 871 ==
LOC: 2SE 17:36
PROVIDERS: ADMIT Family Medicine; ATTEND Family Medicine
DX: A41.9 Sepsis, unspecified organism (principal); J18.9 Pneumonia, unspecified organism; R65.21 Severe sepsis with septic shock; K72.00 Acute and subacute hepatic failure without coma; I63.9 Cerebral infarction, unspecified; E87.2 Acidosis; N17.9 Acute kidney failure, unspecified; Z88.0 Allergy status to penicillin; Z88.5 Allergy status to narcotic agent; Z87.891 Personal history of nicotine dependence; Z51.5 Encounter for palliative care